=== PATIENT | female | born 1950 | race Caucasian/White ===

== ENCOUNTER → 2021-11-15 | Day surgery (SDC) | payer BC ==
[~2021-11-15] MED LIST: ALPRAZOLAM0.5 MG PO; BYSTOLIC5 MG PO; CALCIUM PO; CRESTOR10 MG PO; FENTANYL CITRATE/PF 100MCG/2 ML INJ ONE; LINZESS72 MCG PO; MIDAZOLAM HCL 2 MG/2 ML VIAL ONE; MULTI-VITAMIN1 EACH PO; NABUMETONE750 MG PO; OR PHACO EYE KIT ONE; PANTOPRAZOLE SO40 MG PO; PREOP PHACO EYE KIT ONE; VENLAFAXINE HCL75 MG PO
[2021-11-15 13:10] VITALS: BP 131/74
== END | disposition home or self-care (01) ==
LOC: OR 09:51
PROVIDERS: ATTEND Ophthalmology
DX: H25.12 Age-related nuclear cataract, left eye (principal); I10 Essential (primary) hypertension; F41.9 Anxiety disorder, unspecified; K58.9 Irritable bowel syndrome, unspecified; Z88.5 Allergy status to narcotic agent; Z88.2 Allergy status to sulfonamides
CPT/HCPCS: J2250; J3010; V2788

== ENCOUNTER → 2021-11-29 | Day surgery (SDC) | payer BC ==
[2021-11-29 16:03] VITALS: BP 136/64
== END | disposition home or self-care (01) ==
LOC: OR 12:14
PROVIDERS: ATTEND Ophthalmology
DX: H25.11 Age-related nuclear cataract, right eye (principal); I25.10 Atherosclerotic heart disease of native coronary artery without angina pectoris; I10 Essential (primary) hypertension; E78.5 Hyperlipidemia, unspecified; M19.90 Unspecified osteoarthritis, unspecified site; K21.9 Gastro-esophageal reflux disease without esophagitis; F41.9 Anxiety disorder, unspecified; Z88.6 Allergy status to analgesic agent; Z88.2 Allergy status to sulfonamides; Z79.899 Other long term (current) drug therapy; Z85.3 Personal history of malignant neoplasm of breast
CPT/HCPCS: 66984; J2250; J3010; V2788